=== PATIENT | female | born 1955 | race Caucasian/White ===

== ENCOUNTER 2021-10-07 19:26 | Observation (INO) | payer OTHER ==
[2021-10-07 19:41] VITALS: BMI 21.2
[2021-10-07 20:14] LABS: HEMATOCRIT 36.5 % (32.4-45.2); HEMOGLOBIN 12.6 G/dL (10.7-15.3); MCH 31.5 pg (25.7-33.7); MCHC 34.4 g/dl (32.0-36.0); MEAN CELL VOLUME 91.7 fl (80-96); MEAN PLT VOLUME 7.4 fl (7.5-11.1); PLATELET COUNT 321.2 10^3/uL (134-434); RBC 3.98 10^6/uL (3.60-5.2); WHITE BLOOD COUNT 8.4 10^3/uL (4.0-10.8)
[2021-10-07 20:26] LABS: ALBUMIN 4.1 g/dl (3.4-5.0); BILIRUBIN,TOTAL 1.3 mg/dl (0.2-1); CALCIUM 9.4 mg/dl (8.5-10); CREATININE 0.7 mg/dl (0.55-1.3); TOT PROT 7.3 g/dl (6.4-8.2)
[2021-10-07 20:44] LABS: PLATELET ESTIMATE ADEQUATE
[2021-10-07 22:15] LABS: EPITHELIAL CELLS FEW /hpf
[2021-10-08 00:34] VITALS: RESP 18
[2021-10-08] MEDS ORDERED: DEXTROSE 5%-0.45% SALINE 1,000 ML IV SCH (03:00)
[2021-10-08 08:56] LABS: HEMATOCRIT 44.8 % (32.4-45.2); MCH 30.4 pg (25.7-33.7); MCHC 33.4 g/dl (32.0-36.0); MEAN CELL VOLUME 91.1 fl (80-96); MEAN PLT VOLUME 7.9 fl (7.5-11.1); PLATELET COUNT 202 10^3/uL (134-434); RBC 4.91 M/mm3 (3.60-5.2); RDW 13.4 % (11.6-15.6); WHITE BLOOD COUNT 2.9 K/mm3 (4.0-10.0)
[2021-10-08] MEDS ORDERED: LISINOPRIL 20 MG TABLET PO SCH (10:00)
[2021-10-08] MEDS ORDERED: BUDESONIDE/FORMETEROL FUMARATE 160/4.5 mcg INHALER IH SCH (10:00)
[2021-10-08] MEDS ORDERED: ASPIRIN 81 MG CHEWABLE TABLETS PO SCH (10:00)
[2021-10-08] MEDS: BUDESONIDE/FORMETEROL FUMARATE 160/4.5 mcg INHALER IH SCH ×2 (12:57→21:14)
[2021-10-08] MEDS ORDERED: ATORVASTATIN CA 20 MG TABLET (FP) PO SCH (22:00)
[2021-10-08] MEDS ORDERED: ATORVASTATIN CA 80 MG TABLET (FP) PO SCH (22:00)
[2021-10-09 08:24] LABS: ALBUMIN 3.6 g/dl (3.4-5.0); CALCIUM 9.2 mg/dl (8.5-10); CREATININE 0.6 mg/dl (0.55-1.3); TOT PROT 6.6 g/dl (6.4-8.2)
[2021-10-09] MEDS: BUDESONIDE/FORMETEROL FUMARATE 160/4.5 mcg INHALER IH SCH (09:39)
[2021-10-09 10:10] VITALS: BP 138/67; PULSE 94; TEMP 98.1
[2021-10-09 11:17] LABS: BASO % 1.2 % (0-2.0); EOS % 1.9 % (0-4.5); HEMOGLOBIN 14.4 GM/dL (10.7-15.3); LYMPH % 32.2 % (8-40); MCH 30.3 pg (25.7-33.7); MCHC 33.5 g/dl (32.0-36.0); MEAN CELL VOLUME 90.5 fl (80-96); MONO % 5.9 % (3.8-10.2); NEUT % 58.8 % (42.8-82.8); PLATELET COUNT 222 10^3/uL (134-434); RBC 4.75 M/mm3 (3.60-5.2); RDW 13.3 % (11.6-15.6); WHITE BLOOD COUNT 3.2 K/mm3 (4.0-10.0)
== END 2021-10-09 14:43 | disposition home or self-care (01) ==
LOC: FER 19:26 → UNDOADMOB 23:02 → FM/S 23:02 → OBSVTOIN 23:47 → INTOOBSV 23:47 → FM/S 23:48
PROVIDERS: ADMIT Internal Medicine
PROC: 3E0337Z Introduction of Electrolytic and Water Balance Substance into Peripheral Vein, Percutaneous Approach (ICD-10-PCS; principal; 2021-10-07)
DX: G45.9 Transient cerebral ischemic attack, unspecified (principal); R26.9 Unspecified abnormalities of gait and mobility; I10 Essential (primary) hypertension; E78.5 Hyperlipidemia, unspecified; E11.9 Type 2 diabetes mellitus without complications; J44.9 Chronic obstructive pulmonary disease, unspecified; H53.8 Other visual disturbances; R51.9 Headache, unspecified; Z87.891 Personal history of nicotine dependence
CPT/HCPCS: 0241U-QW; 36415; 70450-TC; 70551-TC; 71045-TC-FY; 80053; 80061; 80307; 81003; 81015; 82550; 82962; 83036; 84439; 84443; 84484; 85025; 85027; 86780; 93005; 93306-TC; 93880-TC; 96360; 99285-25; G0378